=== PATIENT | male | born 1945 | race Caucasian/White ===

== ENCOUNTER 2017-06-11 19:14 | Emergency (ER) | payer MEDICARE, OTHER ==
[2017-06-11 20:26] VITALS: BP 181/92; PULSE 77; RESP 20; TEMP 98.3; O2SAT 97
--- NOTE | 2017-06-11 20:37 | PD ---
HPI Chief Complaint: Complaint Time Seen by Provider: 20:35 Travel History International Travel<30 days: No Contact w/Intl Traveler<30days: No Traveled to known affect area: No History of Present Illness HPI 71-year-old male with history of hypertension presents emergency department for evaluation of irritation with urination, penile irritation, lower abdominal cramping, fever, and chills. He states 3 days ago he had a cystoscopy done and also had evaluation of his prostate. This was done through his rectum. He states following this he had some hematuria. His rectum was also irritated he had discomfort. He states the hematuria has resolved however he continues to have rectal and penile irritation. He has had some lower abdominal cramping. He was nauseous earlier today. He tells me today he had a fever of 102. He is not currently on any antibiotics. States he took 1 prior to the procedure that was not prescribed any others. He has no other symptoms to report. PFSH Past Medical History Medical History: Denies Significant Hx Social History Alcohol Use: No Tobacco Use: No Substance Use: No Allergies-Medications (Allergen,Severity, Reaction): Coded Allergies: No Known Allergies (Unverified , 06/11/17) Review of Systems Except as stated in HPI: all other systems reviewed are Neg Physical Exam Narrative GENERAL: Well-nourished male patient, ambulatory no acute distress. SKIN: Focused skin assessment warm/dry. HEAD: Atraumatic. Normocephalic. EYES: Pupils equal and round. No scleral icterus. No injection or drainage. ENT: No nasal bleeding or discharge. Mucous membranes pink and moist. NECK: Trachea midline. No JVD. CARDIOVASCULAR: Regular rate and rhythm. No murmur appreciated. RESPIRATORY: No accessory muscle use. Clear to auscultation. Breath sounds equal bilaterally. GASTROINTESTINAL: Abdomen soft, nondistended. Mild suprapubic tenderness to palpation. Hepatic and splenic margins not palpable. GENITOURINARY: Circumcised. Testes descended bilaterally without evidence of rotation. No lesions or erythema. No urethral discharge. MUSCULOSKELETAL: No obvious deformities. No clubbing. No cyanosis. No edema. NEUROLOGICAL: Awake and alert. No obvious cranial nerve deficits. Motor grossly within normal limits. Normal speech. PSYCHIATRIC: Appropriate mood and affect; insight and judgment normal. Data Data Last Documented VS Vital Signs Date Time Temp Pulse Resp B/P (MAP) Pulse Ox O2 Delivery O2 Flow Rate FiO2 06/11/17 22:39 77 16 122/88 (99) 99 Room Air 06/11/17 20:26 98.3 Orders Orders Basic Metabolic Panel (Bmp) (06/11/17 21:07) Complete Blood Count With Diff (06/11/17 21:07) Urinalysis - C+S If Indicated (06/11/17 21:07) Iv Access Insert/Monitor (06/11/17 21:07) Ecg Monitoring (06/11/17 21:07) Oximetry (06/11/17 21:07) Sodium Chloride 0.9% Flush (Ns Flush) (06/11/17 21:15) Sodium Chlor 0.9% 1000 Ml Inj (Ns 1000 M (06/11/17 21:15) Labs Laboratory Tests Test 06/11/17 21:20 06/11/17 21:50 White Blood Count 14.5 TH/MM3 Red Blood Count 4.76 MIL/MM3 Hemoglobin 13.2 GM/DL Hematocrit 39.4 % Mean Corpuscular Volume 82.7 FL Mean Corpuscular Hemoglobin 27.8 PG Mean Corpuscular Hemoglobin Concent 33.6 % Red Cell Distribution Width 15.9 % Platelet Count 115 TH/MM3 Mean Platelet Volume 9.9 FL Neutrophils (%) (Auto) 80.9 % Lymphocytes (%) (Auto) 8.8 % Monocytes (%) (Auto) 10.2 % Eosinophils (%) (Auto) 0.0 % Basophils (%) (Auto) 0.1 % Neutrophils # (Auto) 11.8 TH/MM3 Lymphocytes # (Auto) 1.3 TH/MM3 Monocytes # (Auto) 1.5 TH/MM3 Eosinophils # (Auto) 0.0 TH/MM3 Basophils # (Auto) 0.0 TH/MM3 CBC Comment DIFF FINAL Differential Comment MDM Medical Decision Making Medical Screen Exam Complete: Yes Emergency Medical Condition: Yes Medical Record Reviewed: Yes Differential Diagnosis Cystitis versus urethritis versus prostatitis versus sepsis versus abscess Narrative Course 71-year-old male presents to emergency department for evaluation of abdominal cramping, fever, penile and rectal irritation following cystoscopy that was done 4 days ago. Patient appears nontoxic. Workup is initiated. [id number] report is given to my attending who will assume care. Disposition will pend his judgment. Condition: Stable Nati Peterson Jun 11, 2017 20:37
[2017-06-11] MEDS ORDERED: SODIUM CHLORIDE 0.9% FLUSH 10 ML FLUSH IV FLUSH PRN (21:15)
[2017-06-11] MEDS ORDERED: SODIUM CHLOR 0.9% 1000 ML INJ 1,000 ML IV ONE (21:15)
[2017-06-11 21:31] VITALS: O2SAT 98
[2017-06-11 22:35] LABS: AUTOMATED NEUTROPHIL # 11.8 TH/MM3 (1.8-7.7); BASOPHIL % 0.1 % (0.0-2.0); HEMATOCRIT 39.4 % (39.0-51.0); HEMOGLOBIN 13.2 GM/DL (13.0-17.0); LYMPH % 8.8 % (9.0-44.0); LYMPHOCYTE # 1.3 TH/MM3 (1.0-4.8); MEAN CELL VOLUME 82.7 FL (80.0-100.0); MEAN CORPUSCULAR HEMOGLOBIN 27.8 PG (27.0-34.0); MEAN CORPUSCULAR HGB CONC 33.6 % (32.0-36.0); MEAN PLATELET VOLUME 9.9 FL (7.0-11.0); MONO % 10.2 % (0.0-8.0); MONOCYTE # 1.5 TH/MM3 (0-0.9); NEUT % 80.9 % (16.0-70.0); PLATELET COUNT 115 TH/MM3 (150-450); RED BLOOD COUNT 4.76 MIL/MM3 (4.50-5.90); RED CELL DISTRIBUTION WIDTH 15.9 % (11.6-17.2); WHITE BLOOD COUNT 14.5 TH/MM3 (4.0-11.0)
[2017-06-11 22:39] VITALS: BP 122/88; PULSE 77; RESP 16; O2SAT 99
[2017-06-11 22:43] LABS: BACTERIA, URINE FEW /hpf; BILIRUBIN, URINE NEG (NEG); BLOOD, URINE MOD (NEG); GLUCOSE,URINE NEG (NEG); KETONE, URINE TRACE mg/dL (NEG); MUCUS URINE FEW /lpf (OCC); NITRITE,URINE NEG (NEG); PH, URINE 5.5 (5.0-8.5); URINE COLOR YELLOW (YELLW/STRAW); URINE LEUKOCYTE ESTERASE LARGE (NEG); WHITE BLOOD CELL CLUMPS FEW
[2017-06-11 23:06] LABS: BICARBONATE 23.9 MEQ/L (21.0-32.0); CREATININE 0.97 MG/DL (0.60-1.30)
[2017-06-11] MEDS ORDERED: LEVOFLOXACIN 750 MG PREMIX INJ 150 ML IV ONE (23:15)
--- NOTE | 2017-06-12 00:22 | PD ---
Physical Exam Date Seen by Provider: Jun 12, 2017 Time Seen by Provider: 00:25 Narrative Patient's urine comes back with innumerable white blood cells large leuk esterase multiple red blood cells she has a UTI postprocedural from his TURBs procedure. Levaquin 750 mg are given IV and that he is discharged home with Levaquin by mouth 5 days to follow-up with his urologist tomorrow family agrees with the plan patient is afebrile at this time 99.8 his oral temp and discharged with close follow-up with urology in the morning Data Data Last Documented VS Vital Signs Date Time Temp Pulse Resp B/P (MAP) Pulse Ox O2 Delivery O2 Flow Rate FiO2 06/11/17 22:39 77 16 122/88 (99) 99 Room Air 06/11/17 20:26 98.3 Orders Orders Basic Metabolic Panel (Bmp) (06/11/17 21:07) Complete Blood Count With Diff (06/11/17 21:07) Urinalysis - C+S If Indicated (06/11/17 21:07) Iv Access Insert/Monitor (06/11/17 21:07) Ecg Monitoring (06/11/17 21:07) Oximetry (06/11/17 21:07) Sodium Chloride 0.9% Flush (Ns Flush) (06/11/17 21:15) Sodium Chlor 0.9% 1000 Ml Inj (Ns 1000 M (06/11/17 21:15) Urine Culture (06/11/17 21:50) Levofloxacin 750 Mg Premix Inj (Levaquin (06/11/17 23:15) Labs Laboratory Tests Test 06/11/17 21:20 06/11/17 21:50 06/11/17 22:35 White Blood Count 14.5 TH/MM3 Red Blood Count 4.76 MIL/MM3 Hemoglobin 13.2 GM/DL Hematocrit 39.4 % Mean Corpuscular Volume 82.7 FL Mean Corpuscular Hemoglobin 27.8 PG Mean Corpuscular Hemoglobin Concent 33.6 % Red Cell Distribution Width 15.9 % Platelet Count 115 TH/MM3 Mean Platelet Volume 9.9 FL Neutrophils (%) (Auto) 80.9 % Lymphocytes (%) (Auto) 8.8 % Monocytes (%) (Auto) 10.2 % Eosinophils (%) (Auto) 0.0 % Basophils (%) (Auto) 0.1 % Neutrophils # (Auto) 11.8 TH/MM3 Lymphocytes # (Auto) 1.3 TH/MM3 Monocytes # (Auto) 1.5 TH/MM3 Eosinophils # (Auto) 0.0 TH/MM3 Basophils # (Auto) 0.0 TH/MM3 CBC Comment DIFF FINAL Differential Comment Urine Color YELLOW Urine Turbidity HAZY Urine pH 5.5 Urine Specific [place] 1.020 Urine Protein 30 mg/dL Urine Glucose (UA) NEG mg/dL Urine Ketones TRACE mg/dL Urine Occult Blood MOD Urine Nitrite NEG Urine Bilirubin NEG Urine Urobilinogen LESS THAN 2.0 MG/DL Urine Leukocyte Esterase LARGE Urine RBC 38 /hpf Urine WBC /hpf Urine WBC Clumps FEW Urine Bacteria FEW /hpf Urine Mucus FEW /lpf Microscopic Urinalysis Comment CULTURE INDICATED Blood Urea Nitrogen 14 MG/DL Creatinine 0.97 MG/DL Random Glucose 89 MG/DL Calcium Level 8.0 MG/DL Sodium Level 138 MEQ/L Potassium Level 4.8 MEQ/L Chloride Level 106 MEQ/L Carbon Dioxide Level 23.9 MEQ/L Anion Gap 8 MEQ/L Estimat Glomerular Filtration Rate 77 ML/MIN [facility] Supervised Visit with KAS[facility]: Yes Narrative Course Patient has obvious urine infection which is causing his symptoms Levaquin IV it 's help treat his symptoms he is afebrile on discharge and has a planned follow- up with his urologist in the a.m. left been 750 by mouth daily is given Rx and him and his are comfortable with this plan Diagnosis Primary Impression: Urinary tract infection Qualified Codes: N30.01 - Acute cystitis with hematuria Patient Instructions: General Instructions, Urinary Tract Infection in Men (ED) Scripts Levofloxacin (Levaquin) 750 Mg Tablet 750 MG PO DAILY for Infection, #7 TAB 0 Refills Prov: Johnathon Garcia MD 06/12/17 Disposition: DISCHARGE HOME Condition: Good Johnathon Garcia MD Jun 12, 2017 00:22
[2017-06-12] MEDS ORDERED: LEVA750T9 PO (00:23)
== END 2017-06-12 01:06 | disposition home or self-care (01) ==
LOC: NEPE 19:14
DX: N39.0 Urinary tract infection, site not specified (principal); B99.8 Other infectious disease; I10 Essential (primary) hypertension
CPT/HCPCS: 80048; 81001; 85025; 87077; 87086; 87186; 96374; 99284; J1956; J7030